=== PATIENT | male | born 1985 | race Asian ===

== ENCOUNTER 2019-04-10 13:07 | Emergency (ER) | payer OTHER ==
[2019-04-10 13:18] VITALS: BP 166/73
--- NOTE | 2019-04-10 13:27 | ED Physician Documentation ---
PD HPI WOUND RECHECK - Stated complaint Stated Complaint: SKIN IRRITATION - Chief complaint Chief Complaint: Wound - Histroy obtained from History obtained from: Patient - History of Present Illness Location: Abdomen (Painful abscess to the lower abdominal wall for the last week. No fevers. Has a history of remote abscess but not frequently.) Review of Systems Constitutional: reports: Reviewed and negative Cardiac: reports: Reviewed and negative PD PAST MEDICAL HISTORY - Present Medications Home Medications: Ambulatory Orders Medication Instructions Recorded Confirmed Mupirocin 1 gm TP TID #2 oin.pf.[place] 04/10/19 Sulfamethoxazole/Trimethoprim 1 each PO BID #14 tablet 04/10/19 [Sulfamethoxazole-Tmp Ds Tablet] - Allergies Allergies/Adverse Reactions: Allergies Allergy/AdvReac Type Severity Reaction Status Date / Time No Known Drug Allergies Allergy Verified 04/10/19 13:18 PD ED PE NORMAL - Vitals Vital signs reviewed: Yes - General General: Alert and oriented X 3, No acute distress - Abdomen Abdomen: Other (There is a small completely drained open abscess/ulcer to the lower abdominal wall without cellulitis. It was cultured during exam.) - Neuro Neuro: Alert and oriented X 3, Normal speech Results - Vitals Vitals: Vital Signs - 24 hr 04/10/19 13:16 Temperature 36.1 C L Heart Rate 71 Respiratory 18 Rate Blood Pressure 166/73 H O2 Saturation 99 Oxygen O2 Source Room air Departure - Departure Disposition: 01 Home, Self Care Clinical Impression: Abscess Condition: Good Record reviewed to determine appropriate education?: Yes Instructions: ED Staph Infec Abx Tx Only Prescriptions: Mupirocin 1 gm TP TID #2 oin.pf.[place] Sulfamethoxazole/Trimethoprim [Sulfamethoxazole-Tmp Ds Tablet] 1 each PO BID #14 tablet Comments: He can wash it with soap and water, then apply the mupirocin ointment and a Band-Aid. Return for new or worsening symptoms. Follow-up with your doctor on return home. Your blood pressure was elevated today on check into the emergency department. This does not mean that you have hypertension, it is a common phenomenon to come to the emergency department and have elevated blood pressure. I recommend that you see your primary care physician within the week to have it rechecked when you are feeling better.
== END 2019-04-10 13:31 | disposition home or self-care (01) ==
LOC: ED 13:07
DX: L02.211 Cutaneous abscess of abdominal wall (principal); R03.0 Elevated blood-pressure reading, without diagnosis of hypertension
CPT/HCPCS: 87070; 87077; 87181; 87205; 99283